=== PATIENT | female | born 1995 | race Caucasian/White ===

== ENCOUNTER 2021-11-28 15:28 | Inpatient (IN) | payer OTHER ==
[~2021-11-28] VITALS: Ht 162.6 cm; Wt 73.0 kg
--- NOTE | 2021-11-29 08:46 | PR ---
[facility] [address] [facility] [place] [address] Signed Progress Notes IP Datetime Report Generated by CPN: 11/29/2021 08:46 PROGRESS NOTES: [id number] Impression: Normal Progression of Labor Procedures: Artificial ROM Plan: Continue Present Management; Anticipate Vaginal Delivery VITAL SIGNS: [id number] Vital Signs: Reviewed; Within Normal Limits EXAM: [id number] Dilatation: 5.0 Effacement: 80 Station: -2 Contractions: irregular MEMBRANES: [id number] Membranes Status: Ruptured Comments: Tolerating contrctions well, planning on NCB. FETUS A: [id number] FHR Baseline: 140 Variability: Moderate 6-25bpm Presentation: Vertex FETUS B: [id number] Signing Physician: Rikki Duran MD Copies: ~ *Electronically Signed* 11/29/21 0846 RIKKI DURAN MD PATIENT NAME: HERNANDO CHILDRESS PROGRESS NOTE DATE OF : 89 PHYSICIAN: RIKKI DURAN MD RPT #: [id number] REPORT IS CONFIDENTIAL AND NOT TO BE RELEASED WITHOUT AUTHORIZATION
--- NOTE | 2021-11-30 11:06 | PR ---
[facility] [address] [place] [address] Signed PP Progress Notes Datetime Report Generated by CPN: 11/30/2021 11:06 SUBJECTIVE: [id number] Pain: Within Normal Limits Nausea/Vomiting: Denies Vital Signs: [id number] Vital Signs: Reviewed; Within Normal Limits Notable Details: PP Hgb/Hct = 9.7/27.8 Abdomen/Uterus: Normal Lochia: Normal Extremities: Normal IMPRESSION/PLAN/PROCEDURES: [id number] Impression: Normal Progression Other Impression: PP Anemia Plan: Discharge Procedures: None Progress Notes: Doing well, without complaint, minimal pain, ready to go home. Signing Physician: Rikki Duran MD Copies: ~ *Electronically Signed* 11/30/21 1106 RIKKI DURAN MD PATIENT NAME: HERNANDO CHILDRESS PROGRESS NOTE DATE OF : 96 PHYSICIAN: RIKKI DURAN MD RPT #: [id number] REPORT IS CONFIDENTIAL AND NOT TO BE RELEASED WITHOUT AUTHORIZATION
== END 2021-11-30 14:50 | disposition home or self-care (01) | DRG 807 ==
LOC: FBC 11-29 00:01
PROVIDERS: ADMIT General Practice; ATTEND General Practice
PROC: 10E0XZZ Delivery of Products of Conception, External Approach (ICD-10-PCS; principal; 2021-11-29)
PROC: 0KQM0ZZ Repair Perineum Muscle, Open Approach (ICD-10-PCS; 2021-11-29)
PROC: 0HQ9XZZ Repair Perineum Skin, External Approach (ICD-10-PCS; 2021-11-29)
PROC: 10907ZC Drainage of Amniotic Fluid, Therapeutic from Products of Conception, Via Natural or Artificial Opening (ICD-10-PCS; 2021-11-29)
PROC: 3E0R3BZ Introduction of Anesthetic Agent into Spinal Canal, Percutaneous Approach (ICD-10-PCS; 2021-11-29)
PROC: 00HU33Z Insertion of Infusion Device into Spinal Canal, Percutaneous Approach (ICD-10-PCS; 2021-11-29)
PROC: 3E0DXGC Introduction of Other Therapeutic Substance into Mouth and Pharynx, External Approach (ICD-10-PCS; 2021-11-29)
DX: O69.1XX0 Labor and delivery complicated by cord around neck, with compression, not applicable or unspecified (principal); Z37.0 Single live birth; O90.81 Anemia of the puerperium; O70.1 Second degree perineal laceration during delivery; O70.0 First degree perineal laceration during delivery; Z20.822 Contact with and (suspected) exposure to COVID-19; Z3A.39 39 weeks gestation of pregnancy; Z79.899 Other long term (current) drug therapy
CPT/HCPCS: 36415; 85025; 85027; 86850; 86900; 86901; A9270; J2590; J2795; J3010; J7121

== ENCOUNTER 2024-01-14 08:47 | Emergency (ER) | payer OTHER ==
[~2024-01-14] VITALS: Ht 152.4 cm; Wt 66.6 kg
[2024-01-14 11:24] VITALS: BP 100/68
== END 2024-01-14 11:24 | disposition home or self-care (01) ==
LOC: ED 08:47
DX: O20.0 Threatened abortion (principal); Z3A.10 10 weeks gestation of pregnancy
CPT/HCPCS: 76801; 99284-25